=== PATIENT | female | born 1975 | race Hispanic/Latino ===

== ENCOUNTER 2017-01-03 19:19 | Emergency (ER) | payer MEDICAID, MEDICARE, OTHER ==
[2017-01-03 19:19] VITALS: BMI 26.6
[2017-01-03 19:27] VITALS: BP 115/84; PULSE 83; RESP 18; TEMP 97.6; O2SAT 97
[2017-01-03] MEDS ORDERED: Albuterol 0.083% Inhal Sol (2.5 mg/3 mL) UD ONE (20:09)
[2017-01-03] MEDS ORDERED: Albuterol 0.083% Inhal Sol (2.5 mg/3 mL) UD INH STA (20:11)
--- NOTE | 2017-01-03 20:27 | C.PDOC ---
History Of Present Illness A 41 year old female presents to the emergency room with complaints of chest discomfort for a few days. Patient is well known to the ED with multiple prior visits for chest pain, drug seeking, and asthma exacerbation. Patient frequently elopes. Patient eloped prior to evaluation at 20:20. Time Seen by Provider: 01/03/17 20:23 Chief Complaint (Nursing): Chest Pain History/Exam Limitations: other (Patient eloped prior to evaluation.) Past Medical History Vital Signs: Last Vital Signs Temp 97.6 F 01/03/17 19:24 Pulse 83 01/03/17 19:24 Resp 18 01/03/17 19:24 BP 115/84 01/03/17 19:24 Pulse Ox 97 01/03/17 20:27 - Medical History PMH: Anxiety, Asthma, Back Problems, COPD (pt denies), Fractures, Gall Bladder Disease, Pulmonary Embolism Denies: Atrial Fibrillation, Bronchitis (pt denies), Cardia Arrhythmia, CHF, Depression, HTN, Mitral Valve Prolapse, Chronic Kidney Disease, TIA Surgical History: Back Surgery Denies: Pacemaker - [facility] Procedures ARTERIAL PUNCTURE NEC (02/07/15) CENTRAL VENOUS CATHETER PLACEMENT WITH GUIDANCE (04/12/13) CONTINUOUS INVASIVE MECHANICAL VENTILATION <96 CONSEC HRS (02/24/14) INCIS W REM OF FORIEGN BODY OR DEV FROM SKIN & SUBCUT TISSUE (02/24/14) INJECT/INFUSE ELECTROLYT (02/07/15) INJECT/INFUSE NEC (06/25/15) INSERT ENDOTRACHEAL TUBE (02/24/14) INSERTION OF TOTALLY IMPLANTABLE VASC ACCESS DEVIC (02/24/14) NEBULIZER THERAPY (02/07/15) NON-INVASIVE MECHANICAL VENTILATION (02/24/14) OTHER SKIN & SUBQ I D (05/26/14) VENOUS CATHETERIZATION NEC (02/18/13) VENOUS PUNCTURE NEC (11/26/14) VITAL CAPACITY DETERMIN (11/26/14) Family History: States: Unknown Family Hx - Social History Hx Tobacco Use: No Hx Alcohol Use: No Hx Substance Use: No - Immunization History Hx Tetanus Toxoid Vaccination: Yes Hx Influenza Vaccination: No Hx Pneumococcal Vaccination: No Review Of Systems Review Of Systems: ROS cannot be obtained secondary to pt's inabilty to answer questions. (Patient eloped prior to evaluation.) Physical Exam - Physical Exam Additional Physical Exam Comments: Patient eloped prior to evaluation. ED Course And Treatment O2 Sat by Pulse Oximetry: 97 Medical Decision Making Medical Decision Making: Patient is well known to the ED with multiple prior visits for chest pain, drug seeking, and asthma exacerbation. Patient frequently elopes. Patient eloped prior to evaluation at 20:20. Disposition - Disposition Disposition: ELOPEMENT - ER ONLY Disposition Time: 20:26 Condition: GOOD - Clinical Impression Clinical Impression: Chest discomfort - Scribe Statement The provider has reviewed the documentation as recorded by the Moe Simon Provider Scribe Attestation: All medical record entries made by the Moe were at my direction and personally dictated by me. I have reviewed the chart and agree that the record accurately reflects my personal performance of the history, physical exam, medical decision making, and the department course for this patient. I have also personally directed, reviewed, and agree with the discharge instructions and disposition.
--- NOTE | 2017-01-06 15:21 | CARD ---
APPROVED REPORT EKG Measurement Heart [id number] MD [id number] <Conclusion> Normal sinus rhythm Normal ECG
== END 2017-01-03 20:29 | disposition left against medical advice (07) ==
LOC: C.ER 19:19
DX: R07.89 Other chest pain (principal)

== ENCOUNTER 2018-07-25 22:09 | Emergency (ER) | payer MEDICAID, MEDICARE, OTHER ==
[2018-07-25 22:09] VITALS: BMI 26.4
[2018-07-25 22:15] VITALS: TEMP 98.3
[2018-07-25] MEDS ORDERED: Sodium Chloride 0.9% 1,000 ML IV STA (22:34)
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
[2018-07-25 23:07] LABS: HCG,QUALITATIVE URINE NEGATIVE (NEGATIVE)
[2018-07-25 23:12] LABS: SQUAMOUS EPITHIAL 5 /hpf (0-5); URINE BACTERIA RARE (<OCC); URINE BILIRUBIN NEGATIVE (NEGATIVE); URINE BLOOD 1+ (NEGATIVE); URINE CLARITY Hazy (Clear); URINE COLOR Yellow (YELLOW); URINE GLUCOSE (UA) NORMAL (Normal); URINE LEUKOCYTE ESTERASE 3+ Leu/uL (Negative); URINE PROTEIN NEGATIVE (NEGATIVE); URINE UROBILINOGEN NORMAL mg/dL (0.2-1.0)
[2018-07-25] MEDS ORDERED: Morphine 4 MG/ML VIAL ONE (23:20)
[2018-07-25] MEDS ORDERED: Albuterol-Ipratrop 3 mg / 0.5 (3 ml) UD ONE (23:20)
[2018-07-25 23:21] LABS: BASO # 0.2 K/uL (0.0-0.2); BASO % 1.6 % (0.0-2.0); EOS % 0.2 % (0.0-4.0); LYMPH # 0.3 K/uL (1.0-4.3); LYMPH % 2.2 % (20.0-40.0); MEAN CELL VOLUME 95.2 fL (81.0-99.0); MEAN CORPUSCULAR HEMOGLOBIN 31.7 pg (27.0-31.0); MEAN CORPUSCULAR HGB CONC 33.3 g/dL (33.0-37.0); MEAN PLATELET VOLUME 8.5 fL (7.2-11.7); MONO # 0.1 K/uL (0.0-0.8); MONO % 0.6 % (0.0-10.0); NEUT # 11.8 K/uL (1.8-7.0); NEUT % 95.4 % (50.0-75.0); PLATELET COUNT 281 K/uL (130-400); RBC 4.43 Mil/uL (3.80-5.20); RED CELL DISTRIBUTION WIDTH 13.4 % (11.5-14.5); WHITE BLOOD COUNT 12.4 K/uL (4.8-10.8)
[2018-07-25] MEDS: Albuterol-Ipratrop 3 mg / 0.5 (3 ml) UD IH SCH (23:24)
[2018-07-25] MEDS ORDERED: DiphenhydrAMINE 50 mg/ml Inj IVP STA (23:24)
[2018-07-25 23:28] LABS: INR 1.3; PROTHROMBIN TIME 13.8 SECONDS (9.7-12.2)
[2018-07-25] MEDS ORDERED: DiphenhydrAMINE 50 mg/ml Inj ONE (23:29)
[2018-07-25 23:33] LABS: ALB/GLOB RATIO 1.5 (1.0-2.1); ALBUMIN 4.5 g/dL (3.5-5.0); ALT/SGPT 31 U/L (9-52); AST/SGOT 30 U/L (14-36); BLOOD UREA NITROGEN 12 mg/dL (7-17); CALCIUM 9.7 mg/dl (8.6-10.4); GFR NON-AFRICAN AMERICAN > 60; LIPASE 41 U/L (23-300)
[2018-07-26 00:05] LABS: BANDS 2 % (0-2); LYMPHOCYTE 3 % (20-40); MONOCYTE 1 % (0-10); NEUTROPHIL 94 % (50-75); TOTAL CELLS COUNTED 100
[2018-07-26 00:06] LABS: PLATELET ESTIMATE NORMAL (NORMAL)
[2018-07-26 00:58] VITALS: BP 121/80; PULSE 97; RESP 16; O2SAT 100
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
--- NOTE | 2018-07-26 13:33 | CT ---
CT chest abdomen and pelvis History: Flank ecchymosis. COMPARISON: CT dated 10/17/2014 TECHNIQUE: Multiple contiguous axial images were performed through the chest, abdomen, and pelvis without the use of intravenous contrast. Subsequently, sagittal and reformatted images were obtained. This CT exam was performed using one or more of the following dose reduction techniques: Automated exposure control, adjustment of the mA and/or kV according to patient size, and/or use of iterative reconstruction technique. Findings: Soft tissue swelling and edema seen in the the left posterior lateral soft tissues at the level of the left flank. CT chest: Right lun millimeter ground-glass opacity within the right lung apex on series 3, image 22. Patchy atelectasis within the inferior aspect of the right middle lobe. Left lung: Grossly clear. Trachea thru central airways are patent. No significant axillary adenopathy. Thyroid gland is preserved. No significant mediastinal adenopathy. No pleural or pericardial effusion. 9 millimeter loose osteochondral body and/or osteophyte seen within the subcoracoid bursa. Punctate radiopaque density seen anterior to the bony glenoid on the left which may represent a punctate loose osteochondral body. Small sclerotic foci seen within the left posterior 5th rib suggestive for a small bone island. Additional sclerotic foci seen within the left transverse process at the T8 vertebral body which may also represent a bone island. CT abdomen and pelvis: Liver and gallbladder are preserved. Spleen is preserved. Adrenal glands are preserved. Pancreas is preserved. Upper abdominal bowel is preserved. Right kidney: No calculi or hydronephrosis. Left Kidney: No calculi or hydronephrosis. Calcified phleboliths in the pelvis. Urinary bladder is grossly preserved. Heterogeneous uterus and bilateral adnexa. Left adnexal cyst measuring 2.2 centimeters. Evaluation of the lower abdominal bowel demonstrates underdistention of the sigmoid colon with some high-density material seen within the proximal sigmoid nonspecific. Fecal retention throughout the remainder of the colon. Appendix is preserved. Few shotty para-aortic and mesenteric nodes. Sclerotic foci in the bilateral iliac bones and left bob sacrum which may represent bone islands. Postsurgical changes at the L4 and L5 vertebral bodies. Focal patchy sclerosis seen within the femoral heads bilaterally which may represent underlying and or developing avascular necrosis. Correlation with MRI is recommended for further evaluation if clinically indicated. Impression: Soft tissue swelling and edema seen in the the left posterior lateral soft tissues at the level of the left flank. Focal patchy sclerosis seen within the femoral heads bilaterally which may represent underlying and or developing avascular necrosis. Correlation with MRI is recommended for further evaluation if clinically indicated. Scattered sclerotic foci seen throughout the visualized osseous structures which may represent scattered bone islands. Correlation with bone scan may be helpful for further evaluation if indicated to exclude additional etiology. Additional findings as above. A preliminary report was generated at 12:37 a.m. on 07/26/[address] Kath Vidal from [employer].
--- NOTE | 2018-07-28 19:29 | CARD ---
APPROVED REPORT Date of service: 07/25/2018 EKG Measurement Heart [id number] [id number] <Conclusion> Normal sinus rhythm Normal ECG
== END 2018-07-26 00:58 | disposition home or self-care (01) ==
LOC: C.ER 22:09
DX: S30.1XXA Contusion of abdominal wall, initial encounter (principal); V89.2XXA Person injured in unspecified motor-vehicle accident, traffic, initial encounter; N39.0 Urinary tract infection, site not specified
CPT/HCPCS: 70450; 70486; 71250; 74176; 80053; 81001; 82550; 83690; 84484; 84703; 85025; 85610; 85730; 86850; 86900; 87086; 93005; 96361; 96374; 96375; 99284; J1200; J2270; J7030

== ENCOUNTER 2018-10-16 16:19 | Emergency (ER) | payer MEDICAID ==
[2018-10-16 16:19] VITALS: BMI 26.4
[2018-10-16 16:27] VITALS: BP 125/81; PULSE 99; RESP 20; TEMP 98.2; O2SAT 96
[2018-10-16] MEDS ORDERED: MethylPREDNISolone 40 mg Vial IVP STA (16:53)
[2018-10-16] MEDS ORDERED: Albuterol-Ipratrop 3 mg / 0.5 (3 ml) UD INH STA (16:53)
[2018-10-16] MEDS ORDERED: Sodium Chloride 0.9% 500 ML IV ONE (16:57)
--- NOTE | 2018-10-16 17:14 | C.PDOC ---
History Of Present Illness 42 y/o female with a PMHx asthma presents to the ED with multiple complaints. States last night she developed abdominal pain. Patient has remote hx of ovarian cyst. Also complains that her asthma is acting up secondary to being in pain. No other complaints. On arrival to the ED patient appears comfortable, in no acute distress. She denies any productive cough, fevers, chills, nausea, vomiting, diarrhea, or bloody stool. Time Seen by Provider: 10/16/18 16:35 Chief Complaint (Nursing): Abdominal Pain History Per: Patient History/Exam Limitations: no limitations Onset/Duration Of Symptoms: Days Current Symptoms Are (Timing): Still Present Location Of Pain/Discomfort: LUQ, LLQ Past Medical History Reviewed: Historical Data, Nursing Documentation, Vital Signs Vital Signs: Last Vital Signs Temp 98.2 F 10/16/18 16:23 Pulse 99 H 10/16/18 16:23 Resp 20 10/16/18 16:23 BP 125/81 10/16/18 16:23 Pulse Ox 96 10/16/18 16:23 - Medical History PMH: Anxiety, Asthma, Back Problems, COPD, Fractures, Gall Bladder Disease, Pulmonary Embolism Denies: Atrial Fibrillation, Bronchitis (pt denies), Cardia Arrhythmia, CHF, Depression, HIV, HTN, Mitral Valve Prolapse, Chronic Kidney Disease, TIA Surgical History: Back Surgery Denies: Pacemaker - [facility] Procedures ARTERIAL PUNCTURE NEC (02/07/15) CENTRAL VENOUS CATHETER PLACEMENT WITH GUIDANCE (04/12/13) CONTINUOUS INVASIVE MECHANICAL VENTILATION <96 CONSEC HRS (02/24/14) INCIS W REM OF FORIEGN BODY OR DEV FROM SKIN & SUBCUT TISSUE (02/24/14) INJECT/INFUSE ELECTROLYT (02/07/15) INJECT/INFUSE NEC (06/25/15) INSERT ENDOTRACHEAL TUBE (02/24/14) INSERTION OF TOTALLY IMPLANTABLE VASC ACCESS DEVIC (02/24/14) NEBULIZER THERAPY (02/07/15) NON-INVASIVE MECHANICAL VENTILATION (02/24/14) OTHER SKIN & SUBQ I D (05/26/14) VENOUS CATHETERIZATION NEC (02/18/13) VENOUS PUNCTURE NEC (11/26/14) VITAL CAPACITY DETERMIN (11/26/14) Family History: States: Unknown Family Hx - Social History Hx Tobacco Use: No Hx Alcohol Use: No Hx Substance Use: No - Immunization History Hx Tetanus Toxoid Vaccination: No Hx Influenza Vaccination: No Hx Pneumococcal Vaccination: No Review Of Systems Except As Marked, All Systems Reviewed And Found Negative. Constitutional: Negative for: Fever, Chills Eyes: Negative for: Vision Change Cardiovascular: Negative for: Palpitations, Light Headedness Respiratory: Positive for: Shortness of Breath. Negative for: Cough, Sputum Gastrointestinal: Positive for: Abdominal Pain. Negative for: Nausea, Vomiting, Diarrhea Skin: Negative for: Rash Neurological: Negative for: Weakness, Numbness, Dizziness Physical Exam - Physical Exam Appears: Non-toxic, No Acute Distress Skin: Warm, Dry Head: Atraumatic, Normacephalic Eye(s): bilateral: Normal Inspection, PERRL, EOMI Oral Mucosa: Moist Neck: Normal ROM Chest: Symmetrical Cardiovascular: Rhythm Regular, No Murmur Respiratory: No Accessory Muscle Use, No Rhonchi, Wheezing, Other (No respiratory distress) Gastrointestinal/Abdominal: Soft, Tenderness (left-sided abdominal tenderness), No Guarding, No Rebound Back: No CVA Tenderness, No Vertebral Tenderness Extremity: Bilateral: Atraumatic, Normal Color And Temperature, Normal ROM Pulses: Left Radial: Normal, Right Radial: Normal Neurological/Psych: Oriented x3, Normal Speech, Normal Cranial Nerves ED Course And Treatment ECG: Interpreted By Me, Viewed By Me ECG Rhythm: Sinus Rhythm Interpretation Of ECG: No ST changes Rate From EC (bpm) O2 Sat by Pulse Oximetry: 96 (RA) Pulse Ox Interpretation: Normal Medical Decision Making Medical Decision Making: Impression: Abdominal pain, Asthma exacerbation Patient refuses CT scan of abdomen/labs. Plan: --CMP --Lipase --CBC --PTT/PT --UA --Urine HCG --Flu swab --Chest x-ray --IVF hydration --125 mg IV Solu-Medrol --albuterol nebulizer x1 --Pending transvaginal US 15:05 Informed by RN that patient is refusing port access for blood draw. Received call from [employer], patient walked out from ultrasound and eloped. Disposition - Disposition Disposition: ELOPEMENT - ER ONLY Disposition Time: 17:30 Condition: UNKNOWN Forms: [employer] ([place]) - Clinical Impression Clinical Impression: Abdominal pain - Scribe Statement The provider has reviewed the documentation as recorded by the Moe Kumar Provider Attestation: All medical record entries made by the Moe were at my direction and personally dictated by me. I have reviewed the chart and agree that the record accurately reflects my personal performance of the history, physical exam, medic al decision making, and the department course for this patient. I have also personally directed, reviewed, and agree with the discharge instructions and disposition.
[2018-10-16 17:26] LABS: SQUAMOUS EPITHIAL 4 /hpf (0-5); URINE BACTERIA RARE (<OCC); URINE BILIRUBIN NEGATIVE (NEGATIVE); URINE BLOOD NEGATIVE (NEGATIVE); URINE CLARITY Clear (Clear); URINE COLOR Yellow (YELLOW); URINE GLUCOSE (UA) NORMAL (Normal); URINE HYALINE CAST 0-2 /lpf (0-2); URINE LEUKOCYTE ESTERASE 1+ Leu/uL (Negative); URINE PROTEIN NEGATIVE (NEGATIVE); URINE UROBILINOGEN NORMAL mg/dL (0.2-1.0)
[2018-10-16 17:27] LABS: HCG,QUALITATIVE URINE NEGATIVE (NEGATIVE)
--- NOTE | 2018-10-16 17:39 | RAD ---
Date of service: 10/16/2018 HISTORY: Dominant pain COMPARISON: Comparison made with prior chest radiograph dated 10/17/[address] scan of the chest dated 07/25/2018 performed as part of a CT scan of the chest, abdomen and pelvis. The. FINDINGS: In situ left subclavian MediPort tip in the SVC unchanged LUNGS: No acute consolidation.. Previously noted tiny nodular opacity that was seen in the right medial lung apex is poorly delineated on this exam. Probable small vessel and artifact right upper lung field overlying the right posterior 5th rib. PLEURA: No significant pleural effusion identified, no pneumothorax apparent. CARDIOVASCULAR: No aortic atherosclerotic calcification present. Normal cardiac size. No pulmonary vascular congestion. OSSEOUS STRUCTURES: No significant abnormalities. VISUALIZED UPPER ABDOMEN: Normal. OTHER FINDINGS: None. IMPRESSION: No acute consolidation.. Previously noted tiny nodular opacity that was seen in the right medial lung apex is poorly delineated on this exam. Probable small vessel and artifact right upper lung field overlying the right posterior 5th rib.
== END 2018-10-16 17:50 | disposition left against medical advice (07) ==
LOC: C.ER 16:19
DX: R10.9 Unspecified abdominal pain (principal); J45.901 Unspecified asthma with (acute) exacerbation; N83.209 Unspecified ovarian cyst, unspecified side; Z87.891 Personal history of nicotine dependence

== ENCOUNTER 2018-11-06 16:17 | Emergency (ER) | payer MEDICAID ==
[2018-11-06 16:17] VITALS: BMI 26.4
[2018-11-06 16:28] VITALS: RESP 20; TEMP 98.8
[2018-11-06] MEDS ORDERED: Albuterol-Ipratrop 3 mg / 0.5 (3 ml) UD ONE ×2 (16:33→18:08)
[2018-11-06] MEDS ORDERED: Albuterol-Ipratrop 3 mg / 0.5 (3 ml) UD INH STA (16:56)
[2018-11-06 17:31] LABS: BASO # 0.1 K/uL (0.0-0.2); BASO % 0.6 % (0.0-2.0); EOS # 0.3 K/uL (0.0-0.7); EOS % 3.1 % (0.0-4.0); HEMOGLOBIN 14.9 g/dL (11.0-16.0); LYMPH # 1.8 K/uL (1.0-4.3); LYMPH % 16.3 % (20.0-40.0); MEAN CELL VOLUME 94.8 fL (81.0-99.0); MEAN CORPUSCULAR HEMOGLOBIN 32.1 pg (27.0-31.0); MEAN CORPUSCULAR HGB CONC 33.9 g/dL (33.0-37.0); MEAN PLATELET VOLUME 8.2 fL (7.2-11.7); MONO # 1.1 K/uL (0.0-0.8); MONO % 9.5 % (0.0-10.0); NEUT # 7.9 K/uL (1.8-7.0); NEUT % 70.5 % (50.0-75.0); RBC 4.64 Mil/uL (3.80-5.20); RED CELL DISTRIBUTION WIDTH 12.9 % (11.5-14.5); WHITE BLOOD COUNT 11.2 K/uL (4.8-10.8)
[2018-11-06 17:44] LABS: ALB/GLOB RATIO 1.6 (1.0-2.1); ALBUMIN 4.4 g/dL (3.5-5.0); ALT/SGPT 18 U/L (9-52); AST/SGOT 24 U/L (14-36); BLOOD UREA NITROGEN 15 mg/dL (7-17); CALCIUM 9.4 mg/dl (8.6-10.4); GFR NON-AFRICAN AMERICAN > 60
[2018-11-06 21:20] VITALS: BP 108/75; PULSE 88; O2SAT 98
--- NOTE | 2018-11-06 21:45 | C.PDOC ---
History Of Present Illness Patient is a 42 year old female who presents to the ED c/o asthma symptoms over the past few hours. Patient states that she took a nebulizer at home with little relief. She also states that she may be . LMP unknown. Patient notes she had vaginal bleeding yesterday and some today, but it was less than before. She denies any fever, coughs, chills, dizziness, or CP. Time Seen by Provider: 11/06/18 16:39 Chief Complaint (Nursing): Shortness Of Breath History Per: Patient History/Exam Limitations: no limitations Onset/Duration Of Symptoms: Hrs Current Symptoms Are (Timing): Still Present Associated Symptoms: denies: Fever, Chills, Bloody Cough, Productive Cough, Dizziness Past Medical History Reviewed: Historical Data, Nursing Documentation, Vital Signs Vital Signs: Last Vital Signs Temp 98.8 F 11/06/18 21:18 Pulse 88 11/06/18 21:18 Resp 20 11/06/18 21:18 BP 108/75 11/06/18 21:18 Pulse Ox 98 11/06/18 21:18 - Medical History PMH: Anxiety, Asthma, Back Problems, COPD, Fractures, Gall Bladder Disease, Pulmonary Embolism Denies: Atrial Fibrillation, Cardia Arrhythmia, CHF, Depression, HIV, HTN, Mitral Valve Prolapse, Chronic Kidney Disease, TIA Comment Only: Bronchitis (pt denies) Surgical History: Back Surgery Denies: Pacemaker - [facility] Procedures ARTERIAL PUNCTURE NEC (02/07/15) CENTRAL VENOUS CATHETER PLACEMENT WITH GUIDANCE (04/12/13) CONTINUOUS INVASIVE MECHANICAL VENTILATION <96 CONSEC HRS (02/24/14) INCIS W REM OF FORIEGN BODY OR DEV FROM SKIN & SUBCUT TISSUE (02/24/14) INJECT/INFUSE ELECTROLYT (02/07/15) INJECT/INFUSE NEC (06/25/15) INSERT ENDOTRACHEAL TUBE (02/24/14) INSERTION OF TOTALLY IMPLANTABLE VASC ACCESS DEVIC (02/24/14) NEBULIZER THERAPY (02/07/15) NON-INVASIVE MECHANICAL VENTILATION (02/24/14) OTHER SKIN & SUBQ I D (05/26/14) VENOUS CATHETERIZATION NEC (02/18/13) VENOUS PUNCTURE NEC (11/26/14) VITAL CAPACITY DETERMIN (11/26/14) Family History: States: Unknown Family Hx - Social History Hx Tobacco Use: No Hx Alcohol Use: No Hx Substance Use: No - Immunization History Hx Tetanus Toxoid Vaccination: No Hx Influenza Vaccination: No Hx Pneumococcal Vaccination: No Review Of Systems Constitutional: Negative for: Fever, Chills Cardiovascular: Negative for: Chest Pain Respiratory: Positive for: Shortness of Breath, Wheezing Genitourinary: Positive for: Vaginal Bleeding Neurological: Positive for: Dizziness Physical Exam - Physical Exam Appears: Non-toxic, No Acute Distress Skin: Normal Color, Warm, Dry Head: Atraumatic, Normacephalic Oral Mucosa: Moist Neck: Normal ROM, Supple Chest: Symmetrical, No Deformity Cardiovascular: Rhythm Regular, No Murmur Respiratory: Normal Breath Sounds, No Rales, No Rhonchi, Wheezing (clear air entry with expiratory wheeze) Gastrointestinal/Abdominal: Soft, No Tenderness, No Guarding, No Rebound Neurological/Psych: Oriented x3, Normal Speech, Normal Cognition ED Course And Treatment - Laboratory Results Result Diagrams: 11/06/18 17:25 11/06/18 17:25 Lab Results: Total Bilirubin 0.5 mg/dL (0.2-1.3) 11/06/18 17:25 AST 24 U/L (14-36) 11/06/18 17:25 ALT 18 U/L (9-52) 11/06/18 17:25 Alkaline Phosphatase 67 U/L (38-126) 11/06/18 17:25 Total Protein 7.0 g/dL (6.3-8.3) 11/06/18 17:25 Albumin 4.4 g/dL (3.5-5.0) 11/06/18 17:25 Globulin 2.7 gm/dL (2.2-3.9) 11/06/18 17:25 Albumin/Globulin Ratio 1.6 (1.0-2.1) 11/06/18 17:25 Beta HCG, Quant < 2.39 mIU/ML 11/06/18 19:19 O2 Sat by Pulse Oximetry: 98 (on RA) Pulse Ox Interpretation: Normal - CT Scan/US US Pelvis Other Rad Studies (CT/US): Read By Radiologist, Radiology Report Reviewed CT/US Interpretation: Impression. 1. No IUP is seen. Early vs missed . 2. Both ovaries are not visualized. 3. Cervical nabothian cyst. Medical Decision Making Medical Decision Making: Plan: EKG, Serology and labs ordered and reviewed. Nebulizer treatment, Duoneb 3mg/0m5mg INH, and Medrol 125mg IVP administered. Impression: Patient has had 2 positive urine tests with 2 negative beta's. Due to this highly inconsistent testing patient sent for US Pelvis. Disposition - Disposition Referrals: Allan Griffiths Jr., MD [Medical Doctor] - Disposition: HOME/ ROUTINE Disposition Time: 21:10 Condition: IMPROVED Additional Instructions: JB CURTIS, thank you for letting us take care of you today. The emergency medical care you received today was directed at your acute symptoms. If you were prescribed any medication, please fill it and take as directed. It may take several days for your symptoms to resolve. Return to the Emergency Department if your symptoms worsen, do not improve, or if you have any other problems. Please contact your doctor or call one of the physicians/clinics you have been referred to that are listed on the Patient Visit Information form that is included in your discharge packet. Bring any paperwork you were given at discharge with you along with any medications you are taking to your follow up visit. Our treatment cannot replace ongoing medical care by a primary care provider outside of the emergency department. Thank you for allowing the [facility] team to be part of your care today. Follow up with your primary care doctor in 2-3 days for re-evaluation and further management. Prescriptions: predniSONE [Prednisone] 40 mg PO DAILY #10 tab Instructions: Asthma, Adult (DC) Forms: [employer] (Maltese) - Clinical Impression Clinical Impression: Asthma - Scribe Statement The provider has reviewed the documentation as recorded by the Moe Sam All medical record entries made by the Xeniaibrosalind were at my direction and personally dictated by me. I have reviewed the chart and agree that the record accurately reflects my personal performance of the history, physical exam, medical decision making, and the department course for this patient. I have also personally directed, reviewed, and agree with the discharge instructions and disposition.
--- NOTE | 2018-11-07 13:39 | US ---
Date of service: 11/06/2018 HISTORY: vaginal bleeding with right pelvic pain COMPARISON: None available. TECHNIQUE: Transabdominal pelvic ultrasound was performed with longitudinal and transverse images submitted for interpretation. Patient preferred not to undergo transvaginal ultrasonography. FINDINGS: UTERUS: Measures 11.8 x 5.3 x 6.5 cm. Uterus is mildly enlarged, anteverted with no discrete myometrial lesion appreciable. ENDOMETRIUM: Measures 8.0 mm in diameter. Trilaminar in appearance, nonfocal. CERVIX: A nabothian cyst identified measure 1.3 cm greatest dimension with the cervix otherwise unremarkable. RIGHT OVARY: Not identified. No suspicious adnexal mass or fluid collection appreciable. LEFT OVARY: Not identified. No suspicious adnexal mass or fluid collection appreciable. FREE FLUID: No significant free fluid noted. OTHER FINDINGS: None. IMPRESSION: Unremarkable appearing uterus and endometrium with the cervix harboring and nabothian cyst 1.3 cm greatest dimension. Neither ovary was identified under transabdominal technique due to overlying bowel most likely. Patient preferred not to undergo transvaginal ultrasonography. If the examination is being performed for (not an indication segment of recall requisition), none has been demonstrated by this trans abdominal images submitted and therefore consider possible missed versus early nonvisualized. Follow-up serial serum beta HCG analysis is recommended as well as ultrasound in 1 week. Concordant preliminary report from [place], 11/06/2018 9:44 p.m..
--- NOTE | 2018-11-10 10:08 | CARD ---
APPROVED REPORT Date of service: 11/06/2018 EKG Measurement Heart [id number] <Conclusion> Sinus tachycardia Biatrial enlargement Abnormal ECG
== END 2018-11-06 22:04 | disposition home or self-care (01) ==
LOC: C.ER 16:17
DX: J45.909 Unspecified asthma, uncomplicated (principal)
CPT/HCPCS: 76856; 80053; 81025; 84702; 85025; 87804; 93005; 94640; 96374; 99285; J2930

== ENCOUNTER 2018-11-10 03:03 | Emergency (ER) | payer MEDICAID ==
[2018-11-10 03:03] VITALS: BMI 26.4
[2018-11-10] MEDS ORDERED: Sodium Chloride 0.9% 1,000 ML IV ONE (04:12)
--- NOTE | 2018-11-10 04:17 | C.PDOC ---
History Of Present Illness 42 year old female presents to the ER with a complaint of abdominal pain and distention for the past 3 days. Patient states the pain is mainly right sided. She notes also having some diarrhea, fever, and urinary frequency. Patient re ports a Hx of ovarian cyst. Denies vaginal bleeding, bloody stool, or hematuria. 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 Time Seen by Provider: 11/10/18 03:31 Chief Complaint (Nursing): Abdominal Pain History Per: Patient History/Exam Limitations: no limitations Onset/Duration Of Symptoms: Days (3) Current Symptoms Are (Timing): Still Present Associated Symptoms: Fever, Diarrhea, Urinary Symptoms (Frequency) Exacerbating Factors: None Alleviating Factors: None Recent travel outside of the [place]: No Abnormal Vaginal Bleeding: No Past Medical History Reviewed: Historical Data, Nursing Documentation, Vital Signs Vital Signs: Last Vital Signs Temp 99 F 11/10/18 03:18 Pulse 91 H 11/10/18 03:18 Resp 16 11/10/18 03:18 BP 100/67 11/10/18 03:18 Pulse Ox 99 11/10/18 03:18 - Medical History PMH: Anxiety, Asthma, Back Problems, COPD, Fractures, Gall Bladder Disease, Pulm onary Embolism Denies: Atrial Fibrillation, Cardia Arrhythmia, CHF, Depression, HIV, HTN, Mitral Valve Prolapse, Chronic Kidney Disease, TIA Comment Only: Bronchitis (pt denies) Surgical History: Back Surgery Denies: Pacemaker - [facility] Procedures ARTERIAL PUNCTURE NEC (02/07/15) CENTRAL VENOUS CATHETER PLACEMENT WITH GUIDANCE (04/12/13) CONTINUOUS INVASIVE MECHANICAL VENTILATION <96 CONSEC HRS (02/24/14) INCIS W REM OF FORIEGN BODY OR DEV FROM SKIN & SUBCUT TISSUE (02/24/14) INJECT/INFUSE ELECTROLYT (02/07/15) INJECT/INFUSE NEC (06/25/15) INSERT ENDOTRACHEAL TUBE (02/24/14) INSERTION OF TOTALLY IMPLANTABLE VASC ACCESS DEVIC (02/24/14) NEBULIZER THERAPY (02/07/15) NON-INVASIVE MECHANICAL VENTILATION (02/24/14) OTHER SKIN & SUBQ I D (05/26/14) VENOUS CATHETERIZATION NEC (02/18/13) VENOUS PUNCTURE NEC (11/26/14) VITAL CAPACITY DETERMIN (11/26/14) Family History: States: Unknown Family Hx - Social History Hx Tobacco Use: No Hx Alcohol Use: No Hx Substance Use: No - Immunization History Hx Tetanus Toxoid Vaccination: No Hx Influenza Vaccination: No Hx Pneumococcal Vaccination: No Review Of Systems Constitutional: Positive for: Fever. Negative for: Chills Cardiovascular: Negative for: Chest Pain, Palpitations Respiratory: Negative for: Cough, Shortness of Breath Gastrointestinal: Positive for: Abdominal Pain, Diarrhea. Negative for: Other (Bloody stool) Genitourinary: Positive for: Frequency. Negative for: Hematuria, Vaginal Bleeding Neurological: Negative for: Weakness, Numbness Physical Exam - Physical Exam Appears: Non-toxic, Other (Mild painful distress) Skin: Warm, Diaphoretic, No Rash, No Jaundice Head: Atraumatic, Normacephalic Eye(s): bilateral: Normal Inspection, PERRL, EOMI Ear(s): Bilateral: Normal Oral Mucosa: Moist Throat: No Erythema, No Exudate Neck: Normal, No Midline Cervical Tenderness, No Paracervical Tenderness, Supple Lymphatic: Normal Exam Chest: Symmetrical, No Tenderness Cardiovascular: Rhythm Regular, No Friction Rub, No Murmur Respiratory: Normal Breath Sounds, No Rales, No Rhonchi, No Wheezing Gastrointestinal/Abdominal: Bowel Sounds (active), Soft, Tenderness (Mild to moderate RLQ), No Guarding, No Rebound Back: No CVA Tenderness Extremity: Normal ROM, No Tenderness, No Swelling Neurological/Psych: Oriented x3, Normal Speech, Normal Motor Gait: Steady ED Course And Treatment - Laboratory Results Result Diagrams: 11/10/18 04:11 11/10/18 05:01 O2 Sat by Pulse Oximetry: 99 (Room air) Pulse Ox Interpretation: Normal Against Medical Advice - AMA Patient Left Against Medical Advice: The patient declines CT and wishes to leave the Emergency Department. This action is against my medical advice. This decision was made with informed refusal. The patient was told that CT is necessary. Explanation of the reasons why were discussed. The risks of leaving were explained to the patient and include, but are not limited to, worsening of known or currently unknown conditions, permanent disability and from undiagnosed or untreated conditions. The patient has the capacity to make this informed decision and understands my explanation of the current medical problem and risks of leaving. The patient voluntarily accepts these risks and signed an AMA form documenting our conversation. The patient was given the opportunity to ask questions and reconsider. The patient was encouraged to return to the Emergency Department at any time for further care. Medical Decision Making Medical Decision Making: CT abd/pel, blood work, urinalysis, and obstructive series ordered. IV fluids, morphine, and zofran administered. Patient refused CT abd/pel and is requesting to leave, will sign out AMA. Disposition - Disposition Referrals: Allan Griffiths Jr., MD [Medical Doctor] - Disposition: AGAINST MEDICAL ADVICE Disposition Time: 06:15 Condition: STABLE Additional Instructions: Follow up with the medical doctor within 1-2 days. Return if worsened. Instructions: Acute Abdomen (Belly Pain), Adult (DC) Forms: [employer] (Khmer) - Clinical Impression Clinical Impression: Abdominal wall pain - PA / PLASTIC SURGERY COORDINATOR / Resident Statement MD/DO has reviewed & agrees with the documentation as recorded. - Scribe Statement The provider has reviewed the documentation as recorded by the Scribe Stuart Lozada All medical record entries made by the Scribe were at my direction and personally dictated by me. I have reviewed the chart and agree that the record accurately reflects my personal performance of the history, physical exam, medical decision making, and the department course for this patient. I have also personally directed, reviewed, and agree with the discharge instructions and disposition.
[2018-11-10] MEDS ORDERED: Morphine 4 MG/ML VIAL ONE (04:30)
[2018-11-10] MEDS ORDERED: DiphenhydrAMINE 50 mg/ml Inj ONE (04:35)
[2018-11-10 05:04] LABS: BASO # 0.1 K/uL (0.0-0.2); BASO % 0.9 % (0.0-2.0); EOS # 0.5 K/uL (0.0-0.7); EOS % 5.5 % (0.0-4.0); HEMOGLOBIN 14.4 g/dL (11.0-16.0); LYMPH # 2.4 K/uL (1.0-4.3); LYMPH % 25.5 % (20.0-40.0); MEAN CELL VOLUME 94.9 fL (81.0-99.0); MEAN CORPUSCULAR HEMOGLOBIN 31.9 pg (27.0-31.0); MEAN CORPUSCULAR HGB CONC 33.6 g/dL (33.0-37.0); MEAN PLATELET VOLUME 8.3 fL (7.2-11.7); MONO % 10.5 % (0.0-10.0); NEUT # 5.4 K/uL (1.8-7.0); NEUT % 57.6 % (50.0-75.0); RBC 4.5 Mil/uL (3.80-5.20); RED CELL DISTRIBUTION WIDTH 12.4 % (11.5-14.5); WHITE BLOOD COUNT 9.4 K/uL (4.8-10.8)
[2018-11-10 05:20] LABS: SQUAMOUS EPITHIAL 6 /hpf (0-5); URINE BACTERIA RARE (<OCC); URINE BILIRUBIN NEGATIVE (NEGATIVE); URINE BLOOD NEGATIVE (NEGATIVE); URINE CLARITY Clear (Clear); URINE COLOR Yellow (YELLOW); URINE GLUCOSE (UA) NORMAL (Normal); URINE LEUKOCYTE ESTERASE TRACE Leu/uL (Negative); URINE PROTEIN NEGATIVE (NEGATIVE); URINE UROBILINOGEN NORMAL mg/dL (0.2-1.0)
[2018-11-10] MEDS ORDERED: DiphenhydrAMINE 50 mg/ml Inj IVP STA (05:20)
[2018-11-10 05:47] LABS: ALB/GLOB RATIO 1.6 (1.0-2.1); ALBUMIN 4.1 g/dL (3.5-5.0); ALT/SGPT 8 U/L (9-52); AST/SGOT 18 U/L (14-36); BLOOD UREA NITROGEN 16 mg/dL (7-17); CALCIUM 8.8 mg/dl (8.6-10.4); GFR NON-AFRICAN AMERICAN > 60; LIPASE 42 U/L (23-300)
[2018-11-10] MEDS ORDERED: Iohexol 350mgl/ml 50 ML ONE ×2 (05:57)
[2018-11-10] MEDS ORDERED: Iohexol 350mg/ml 100 ML ONE (05:57)
[2018-11-10 06:35] VITALS: BP 121/78; PULSE 81; RESP 18; TEMP 97.9
[2018-11-14 08:31] VITALS: O2SAT 99
== END 2018-11-10 06:33 | disposition left against medical advice (07) ==
LOC: C.ER 03:03
DX: R10.9 Unspecified abdominal pain (principal); J44.9 Chronic obstructive pulmonary disease, unspecified
CPT/HCPCS: 80053; 81001; 81025; 83690; 85025; 96361; 96374; 96375; 99285; J1200; J2270; J2405; J7030